=== PATIENT | male | born 2000 | race Caucasian/White ===

== ENCOUNTER 2023-03-20 12:41 | Emergency (ER) | payer MEDICAID ==
[~2023-03-20] VITALS: Ht 162.6 cm; Wt 77.1 kg
[2023-03-20] MEDS ORDERED: OFLO5DRO4 LEFT EAR (12:55)
[2023-03-20] MEDS ORDERED: TOPUD MT (12:55)
[2023-03-20] MEDS ORDERED: NAPR375T5 MT (12:55)
[2023-03-20 12:57] VITALS: O2SAT 98
[2023-03-20 13:12] VITALS: BP 129/77; PULSE 84; RESP 16; TEMP 98.2
== END 2023-03-20 13:16 | disposition home or self-care (01) ==
LOC: ER 12:41
DX: H60.92 Unspecified otitis externa, left ear (principal)
CPT/HCPCS: 99283